=== PATIENT | male | born 1995 | race American Indian/Alaskan Native ===

== ENCOUNTER 2019-08-18 11:25 | Emergency (ER) | payer SELFPAY ==
[2019-08-18 11:33] VITALS: BP 144/83
--- NOTE | 2019-08-18 12:16 | Emergency Department Report ---
Chief Complaint: Sore Throat Stated Complaint: SORE THROAT Time Seen by Provider: 08/18/19 11:54 - HPI History of Present Illness: 24-year-old -[place] male presents to the emergency room complaining of a sore throat x1 week. Patient reports is taken ibuprofen. Patient denies any fever chills or nausea no vomiting. - Exam Vital Signs: Vital Signs 08/18/19 11:30 Temperature 98.7 F Pulse Rate 80 Respiratory 16 Rate Blood Pressure 144/83 O2 Sat by Pulse 98 Oximetry Physical Exam: Patient is alert and oriented x3 no acute distress nontoxic in appearance HEENT oral mucosa moist nonerythematous non-hypertrophic tonsils no lymphadenopathy patent. MSE screening note: Focused history and physical exam performed. Due to findings the following was ordered: 24-year-old -[place] male presents to the emergency room complaining of a sore throat x1 week. Patient reports is taken ibuprofen. Patient denies any fever chills or nausea no vomiting. Recommend patient to continue with ibuprofen warm salt gargles and to follow-up in urgent care. ED Disposition for MSE Disposition: MED SCREENING EXAM-LEFT Is pt being admited?: No Does the pt Need Aspirin: No Condition: Stable Additional Instructions: Tylenol or ibuprofen for pain management warm salt gargles. Follow-up with urgent care or primary care. Referrals: PRIMARY MD FATOU [Primary Care Provider] - 3-5 Days SANAM ESPITIA MD [Staff Physician] - 3-5 Days [facility] [Provider Group] - 3-5 Days
== END 2019-08-18 12:16 | disposition left against medical advice (07) ==
LOC: ED 11:25
DX: J02.9 Acute pharyngitis, unspecified (principal); Z53.21 Procedure and treatment not carried out due to patient leaving prior to being seen by health care provider